=== PATIENT | male | born 1975 | race Caucasian/White ===

== ENCOUNTER 2020-07-17 13:48 | Emergency (ER) | payer BC ==
[2020-07-17 15:42] LABS: Absolute Lymphocytes (CBC) 1.1 K/uL (0.7-4.9); Basophils % 0.4 % (0-1.3); Hematocrit 46.1 % (39.6-49.0); Lymphocytes % 11.8 % (15.3-44.8); MPV 7.5 fL (7.6-11.3); RBC Red Blood Cell Count 5.52 M/uL (4.33-5.43)
--- NOTE | 2020-07-17 15:46 | RAD REPORT ---
EXAM DESCRIPTION: CTAbdomen Pelvis W Contrast - 07/17/2020 3:40 pm CLINICAL HISTORY: Abdominal pain. ABD PAIN COMPARISON: No comparisons TECHNIQUE: Biphasic CT imaging of the abdomen and pelvis was performed with 100 ml non-ionic IV cont rast. All CT scans are performed using dose optimization technique as appropriate and may include automated exposure control or mA/KV adjustment according to patient size. FINDINGS: The lung bases are clear. The liver, spleen, pancreas, adrenal glands and kidneys are within normal limits. No bowel obstruction, free air, free fluid or abscess. Sigmoid colon demonstrates multiple diverticul a with mild peridiverticular inflammatory changes. This likely represents early/mild acute diverticul itis. No abscess seen. The appendix is normal. No evidence of significant lymphadenopathy. No suspicious bony findings. IMPRESSION: Mild/early acute diverticulitis in the sigmoid colon is suspected. No abscess is evident . Advise colonoscopy after appropriate therapy to exclude a more aggressive underlying process.
[2020-07-17 16:01] LABS: Potassium 4.3 mmol/L (3.5-5.1)
--- NOTE | 2020-07-17 16:12 | EDPHYS ---
Physician Documentation [facility] Name: Jayshree Shah Age: 45 yrs Sex: Male : 1975 Arrival Date: 07/17/2020 Time: 13:50 Bed 6 Private MD: ED Physician Otf Coulter HPI: 07/17 16:38 This 45 yrs old Male presents to ER via Ambulatory with complaints of kb Abdominal Pain. 16:38 The patient presents with abdominal pain in the left lower quadrant. Modifying factors: kb The symptoms are alleviated by nothing, the symptoms are aggravated by movement. The patient has not experienced similar symptoms in the past. The patient has not recently seen a physician. 16:38 Onset: The symptoms/episode began/occurred 2 day(s) ago. The symptoms do not radiate. kb Associated signs and symptoms: none. The symptoms are described as constant. Severity of pain: At its worst the pain was moderate in the emergency department the pain is unchanged. Historical: - Allergies: 13:57 Zithromax; hb - Home Meds: 13:57 trazodone 100 mg Oral tab nightly [Active]; Xanax Oral as needed [Active]; hb - PMHx: 13:57 Anxiety; hb - PSHx: 13:57 Achilles - Right; hb - Immunization history:: Adult Immunizations up to date. - Social history:: Smoking status: Patient denies any tobacco usage or history of. ROS: 16:37 Constitutional: Negative for fever, chills, and weight loss, Cardiovascular: Negative kb for chest pain, palpitations, and edema, Respiratory: Negative for shortness of breath, cough, wheezing, and pleuritic chest pain, Back: Negative for injury and pain, MS/Extremity: Negative for injury and deformity, Skin: Negative for injury, rash, and discoloration, Neuro: Negative for headache, weakness, numbness, tingling, and seizure. 16:37 Abdomen/GI: Positive for abdominal pain, Negative for nausea, vomiting, and diarrhea, constipation. Exam: 16:37 Constitutional: This is a well developed, well nourished patient who is awake, alert, kb and in no acute distress. Head/Face: Normocephalic, atraumatic. Chest/axilla: Normal chest wall appearance and motion. Nontender with no deformity. No lesions are appreciated. Cardiovascular: Regular rate and rhythm with a normal S1 and S2. No gallops, murmurs, or rubs. Normal PMI, no JVD. No pulse deficits. Respiratory: Lungs have equal breath sounds bilaterally, clear to auscultation and percussion. No rales, rhonchi or wheezes noted. No increased work of breathing, no retractions or nasal flaring. Back: No spinal tenderness. No costovertebral tenderness. Full range of motion. Skin: Warm, dry with normal turgor. Normal color with no rashes, no lesions, and no evidence of cellulitis. MS/ Extremity: Pulses equal, no cyanosis. Neurovascular intact. Full, normal range of motion. Neuro: Awake and alert, GCS 15, oriented to person, place, time, and situation. Cranial nerves II-XII grossly intact. Motor strength 5/5 in all extremities. Sensory grossly intact. Cerebellar exam normal. Normal gait. 16:37 Abdomen/GI: Inspection: abdomen appears normal, Bowel sounds: normal, in all quadrants, Palpation: soft, in all quadrants, moderate abdominal tenderness, in the left lower quadrant. Vital Signs: 13:55 BP 134 / 93; Pulse 105; Resp 16; Temp 99; Pulse Ox 99% on R/A; Weight 77.11 kg; Height hb 5 ft. 10 in. (177.80 cm); Pain 3/10; 16:25 BP 132 / 87; Pulse 89; Resp 16; Temp 98.0; Pulse Ox 100% on R/A; iw 13:55 Body Mass Index 24.39 (77.11 kg, 177.80 cm) hb MDM: 14:53 Patient medically screened. kb 16:36 Data reviewed: vital signs, nurses notes. Data interpreted: Pulse oximetry: on room air kb is 99 %. Interpretation: normal. Counseling: I had a detailed discussion with the patient and/or guardian regarding: the historical points, exam findings, and any diagnostic results supporting the discharge/admit diagnosis, lab results, radiology results, the need for outpatient follow up, a family practitioner, to return to the emergency department if symptoms worsen or persist or if there are any questions or concerns that arise at home. 07/17 15:20 Order name: Basic Metabolic Panel; Complete Time: 16:11 kb 07/17 15:20 Order name: CBC with Diff; Complete Time: 15:44 kb 07/17 15:20 Order name: CT Abd/Pelvis - IV Contrast Only; Complete Time: 15:50 kb 07/17 16:16 Order name: Urine Dipstick--Ancillary (enter results) iw 07/17 15:20 Order name: Urine Dipstick-Ancillary (obtain specimen); Complete Time: 16:14 kb 07/17 15:20 Order name: IV Saline Lock; Complete Time: 16:10 kb 07/17 15:20 Order name: Labs collected and sent; Complete Time: 16:10 kb Administered Medications: 16:14 Drug: Cipro 500 mg Route: PO; iw 16:14 Drug: Flagyl 500 mg Route: PO; iw Disposition: 07/18 14:38 Co-signature as Attending Physician, Otf Coulter MD I agree with the assessment and kdr plan of care. Disposition: 07/17/20 16:12 Discharged to Home. Impression: Diverticulitis of intestine, part unspecified, without perforation or abscess without bleeding. - Condition is Stable. - Discharge Instructions: Diverticulitis, [id number]. - Prescriptions for Flagyl 500 mg Oral Tablet - take 1 tablet by ORAL route every 8 hours for 10 days; 30 tablet. Zofran 4 mg Oral Tablet - take 1 tablet by ORAL route every 6 hours As needed; 20 tablet. Cipro 500 mg Oral Tablet - take 1 tablet by ORAL route every 12 hours for 10 days; 20 tablet. Tramadol 50 mg Oral Tablet - take 1 tablet by ORAL route every 8 hours as needed; 12 tablet. - Medication Reconciliation Form, Thank You Letter, Antibiotic Education, Prescription Opioid Use, Work release form form. - Follow up: Emergency Department; When: As needed; Reason: Worsening of condition. Follow up: Private Physician; When: 2 - 3 days; Reason: Recheck today's complaints, Continuance of care, Re-evaluation by your physician. Signatures: Dispatcher [employer] Hortensia Contreras FNP-C FNP-Otf Randolph MD MD [facility] Ca Christianson RN RN iw Steph Monroy RN RN Corrections: (The following items were deleted from the chart) 07/17 16:34 16:12 07/17/2020 16:12 Discharged to Home. Impression: Diverticulitis of intestine, iw part unspecified, without perforation or abscess without bleeding. Condition is Stable. Forms are Medication Reconciliation Form, Thank You Letter, Antibiotic Education, Prescription Opioid Use. Follow up: Emergency Department; When: As needed; Reason: Worsening of condition. Follow up: Private Physician; When: 2 - 3 days; Reason: Recheck today's complaints, Continuance of care, Re-evaluation by your physician. kb
--- NOTE | 2020-07-17 16:12 | ER ---
Nurse's Notes [facility] Name: Jayshree Shah Age: 45 yrs Sex: Male : 1975 Arrival Date: 07/17/2020 Time: 13:50 Bed 6 Private MD: Diagnosis: Diverticulitis of intestine, part unspecified, without perforation or abscess without bleeding Presentation: 07/17 13:55 Chief complaint: Lower abdomnal pain x 2 days. Pain is worse with walking. Denies hb N/V/D. Coronavirus screen: At this time, the client does not indicate any symptoms associated with coronavirus-19. Ebola Screen: No symptoms or risks identified at this time. Initial Sepsis Screen: Does the patient meet any 2 criteria? HR > 90 bpm. No. Patient's initial sepsis screen is negative. Does the patient have a suspected source of infection? No. Patient's initial sepsis screen is negative. Risk Assessment: Do you want to hurt yourself or someone else? Patient reports no desire to harm self or others. Onset of symptoms was July 16, 2020. 13:55 Method Of Arrival: Ambulatory hb 13:55 Acuity: JULIEN 3 hb Triage Assessment: 16:00 General: Appears in no apparent distress. Behavior is calm. iw Historical: - Allergies: 13:57 Zithromax; hb - Home Meds: 13:57 trazodone 100 mg Oral tab nightly [Active]; Xanax Oral as needed [Active]; hb - PMHx: 13:57 Anxiety; hb - PSHx: 13:57 Achilles - Right; hb - Immunization history:: Adult Immunizations up to date. - Social history:: Smoking status: Patient denies any tobacco usage or history of. Screenin:30 Abuse screen: Denies threats or abuse. Denies injuries from another. Nutritional iw screening: No deficits noted. Tuberculosis screening: No symptoms or risk factors identified. Fall Risk None identified. Assessment: 15:30 General: Appears in no apparent distress. comfortable, Behavior is calm, cooperative. iw Pain: Complains of pain in left lower quadrant. Neuro: Level of Consciousness is awake, alert, obeys commands, Oriented to person, place, time, situation, Moves all extremities. Full function. Cardiovascular: Patient's skin is warm and dry. Respiratory: Respiratory effort is even, unlabored, Respiratory pattern is regular, symmetrical. GI: Bowel sounds present X 4 quads. Abd is soft X 4 quads. Derm: Skin is intact, is healthy with good turgor. Musculoskeletal: Range of motion: intact in all extremities. Vital Signs: 13:55 BP 134 / 93; Pulse 105; Resp 16; Temp 99; Pulse Ox 99% on R/A; Weight 77.11 kg; Height hb 5 ft. 10 in. (177.80 cm); Pain 3/10; 16:25 BP 132 / 87; Pulse 89; Resp 16; Temp 98.0; Pulse Ox 100% on R/A; iw 13:55 Body Mass Index 24.39 (77.11 kg, 177.80 cm) hb ED Course: 13:50 Patient arrived in ED. ag5 13:56 Triage completed. hb 13:57 Arm band placed on. hb 14:32 Hortensia Byrd FNP-C is [facility]. kb 14:32 Otf Coulter MD is Attending Physician. kb 15:30 Patient has correct armband on for positive identification. iw 15:41 CT Abd/Pelvis - IV Contrast Only In Process Unspecified. EDMS 15:57 Ca Christianson, RN is Primary Nurse. iw 16:33 No provider procedures requiring assistance completed. IV discontinued, intact, iw bleeding controlled, No redness/swelling at site. Pressure dressing applied. Administered Medications: 16:14 Drug: Cipro 500 mg Route: PO; iw 16:14 Drug: Flagyl 500 mg Route: PO; iw Outcome: 16:12 Discharge ordered by MD. kb 16:33 Discharged to home ambulatory. iw 16:33 Condition: good 16:33 Discharge instructions given to patient, Instructed on discharge instructions, follow up and referral plans. medication usage, Demonstrated understanding of instructions, follow-up care, medications, Prescriptions given X 4. 16:34 Patient left the ED. iw Signatures: Dispatcher [employer] EDMS Hortensia Byrd FNP-C FNP-Ckb Williams, Irene, RN RN Steph Monroy RN RN Shobha Hutchinson ag5 Corrections: (The following items were deleted from the chart) 19:47 17:00 BP 132 / 87; Pulse 89bpm; Resp 16bpm; Pulse Ox 100% RA; Temp 98.0F; iw iw
[2020-07-17] MEDS ORDERED: CIPROFLOXACIN HCL 500 MG TAB ONE (16:20)
[2020-07-17] MEDS ORDERED: metroNIDAZOLE 500 MG TABLET ONE (16:20)
[2020-07-17 16:29] LABS: Urine Blood NEGATIVE (NEG); Urine Glucose NEGATIVE (NEG); Urine Protein NEGATIVE (NEG); Urine Specific Gravity 1.015 (1.005-1.030); Urine pH 6.5 (5.0-7.0)
[2020-07-17 16:44] VITALS: BP 134/93; TEMP 99; O2SAT 99
== END 2020-07-17 16:34 | disposition home or self-care (01) ==
LOC: ER 13:48
DX: K57.92 Diverticulitis of intestine, part unspecified, without perforation or abscess without bleeding (principal); F41.9 Anxiety disorder, unspecified; Z88.1 Allergy status to other antibiotic agents
CPT/HCPCS: 85025; 80048; 36415; 82565; 81003; 74177; 99283; Q9967